=== PATIENT | male | born 1985 | race Two or more races ===

== ENCOUNTER 2020-08-07 10:46 | Emergency (ER) | payer OTHER ==
[~2020-08-07] VITALS: Ht 170.2 cm; Wt 72.6 kg
[~2020-08-07 10:46] MED LIST: METCAR500 PO; Naprosyn500 MG PO; Ultram50 MG PO
[2020-08-07 13:31] LABS: BASOPHILS ABSOLUTE AUTO 0.05 K/mm3 (0.00-0.23); BASOPHILS PERCENT AUTO 1 % (0-2); EOSINOPHILS ABSOLUTE AUTO 0.08 K/mm3 (0.00-0.68); EOSINOPHILS PERCENT AUTO 1 % (0-6); Hematocrit 45.5 % (37.0-53.0); IMMATURE GRAN ABSOLUTE AUTO 0.05 K/mm3 (0.00-0.10); IMMATURE GRAN PERCENT AUTO 1 % (0-1); LYMPHOCYTES ABSOLUTE AUTO 2.53 K/mm3 (0.84-5.20); LYMPHOCYTES PERCENT AUTO 29 % (21-46); MONOCYTES ABSOLUTE AUTO 0.64 K/mm3 (0.16-1.47); MONOCYTES PERCENT AUTO 7 % (4-13); Mean Corpuscular HGB 21.4 pg (26.0-34.0); Mean Corpuscular HGB Conc 30.8 g/dL (31.5-36.5); Mean Corpuscular Volume 70 fL (80-100); Mean Platelet Volume 12.1 fL (9.1-12.4); NEUTROPHILS ABSOLUTE AUTO 5.43 K/mm3 (1.96-9.15); NEUTROPHILS PERCENT AUTO 62 % (41-73); Platelet Count 202 K/mm3 (150-400); RDW Coefficient Variation 16.1 % (11.7-14.2); RDW Standard Deviation 37.4 fL (35.1-46.3); Red Blood Cell Count 6.53 M/mm3 (4.30-5.90); White Blood Cell Count 8.78 K/mm3 (4.00-11.30)
[2020-08-07] MEDS ORDERED: OXYC5 PO (14:09)
[2020-08-07] MEDS ORDERED: CYCL10 PO (14:09)
== END 2020-08-07 14:27 | disposition home or self-care (01) ==
LOC: ER 10:46
PROVIDERS: Physician Assistant
DX: M25.512 Pain in left shoulder (principal); G89.29 Other chronic pain; Z87.828 Personal history of other (healed) physical injury and trauma
CPT/HCPCS: 36415; 85025; 85651; 86140; 96372; 99283; A9270; J1885

== ENCOUNTER 2020-10-08 11:27 | Day surgery (SDC) | payer OTHER ==
[~2020-10-08] VITALS: Ht 170.2 cm; Wt 75.3 kg
[~2020-10-08 11:27] MED LIST changes: +CYCL10 PO; +OXYC5 PO
--- NOTE | 2020-10-08 13:02 | NUR ---
10/08/20 1302 Shabbir Giron CALL LIGHT WITHIN REACH
--- NOTE | 2020-10-08 15:04 | NUR ---
10/08/20 1504 Stacey Jones EPI 1MG INJECTED INTO EACH OF THE FIRST 3 3000ML BAGS OF LR PER MD US
== END 2020-10-08 16:10 | disposition home or self-care (01) ==
LOC: ORSCSDS 11:27
PROVIDERS: Orthopaedic Surgery
PROC: 0LS44ZZ Reposition Left Upper Arm Tendon, Percutaneous Endoscopic Approach (ICD-10-PCS; principal; 2020-10-08 13:15)
PROC: 0LU24KZ Supplement Left Shoulder Tendon with Nonautologous Tissue Substitute, Percutaneous Endoscopic Approach (ICD-10-PCS; principal; 2020-10-08 13:15)
PROC: 0RNK4ZZ Release Left Shoulder Joint, Percutaneous Endoscopic Approach (ICD-10-PCS; principal; 2020-10-08 13:15)
PROC: 0LQ24ZZ Repair Left Shoulder Tendon, Percutaneous Endoscopic Approach (ICD-10-PCS; principal; 2020-10-08 13:15)
DX: M75.112 Incomplete rotator cuff tear or rupture of left shoulder, not specified as traumatic (principal); M75.22 Bicipital tendinitis, left shoulder; M75.42 Impingement syndrome of left shoulder
CPT/HCPCS: C1713; J0171; J0690; J1100; J2250; J2405; J2704; J2795; J3010; J7120

== ENCOUNTER 2022-07-04 05:48 | Emergency (ER) | payer OTHER ==
[~2022-07-04] VITALS: Ht 170.2 cm; Wt 72.6 kg
[2022-07-04 08:29] LABS: BASOPHILS ABSOLUTE AUTO 0.04 K/mm3 (0.00-0.23); BASOPHILS PERCENT AUTO 0 % (0-2); EOSINOPHILS ABSOLUTE AUTO 0.08 K/mm3 (0.00-0.68); EOSINOPHILS PERCENT AUTO 1 % (0-6); Hematocrit 45.4 % (37.0-53.0); Hemoglobin 14.4 g/dL (13.5-17.5); IMMATURE GRAN ABSOLUTE AUTO 0.09 K/mm3 (0.00-0.10); IMMATURE GRAN PERCENT AUTO 1 % (0-1); LYMPHOCYTES PERCENT AUTO 12 % (21-46); MONOCYTES ABSOLUTE AUTO 0.65 K/mm3 (0.16-1.47); MONOCYTES PERCENT AUTO 4 % (4-13); Mean Corpuscular HGB 21.8 pg (26.0-34.0); Mean Corpuscular HGB Conc 31.7 g/dL (31.5-36.5); Mean Corpuscular Volume 69 fL (80-100); Mean Platelet Volume 11.5 fL (9.1-12.4); NEUTROPHILS ABSOLUTE AUTO 13.32 K/mm3 (1.96-9.15); NEUTROPHILS PERCENT AUTO 82 % (41-73); Platelet Count 228 K/mm3 (150-400); RDW Coefficient Variation 16.6 % (11.7-14.2); RDW Standard Deviation 37.5 fL (35.1-46.3); Red Blood Cell Count 6.61 M/mm3 (4.30-5.90); White Blood Cell Count 16.18 K/mm3 (4.00-11.30)
[2022-07-04 08:51] LABS: Albumin, Blood 3.8 g/dL (3.4-5.0); Bilirubin, Total 0.4 mg/dL (0.1-1.0); Bun/Creatinine Ratio 14.9 (12.0-20.0); Calcium, Blood 9.2 mg/dL (8.5-10.1); Creatinine, Blood 0.81 mg/dL (0.60-1.20); Globulin, Blood 3.9 g/dL (2.2-4.0); Potassium, Blood 4.5 mmol/L (3.5-5.5); Total Protein, Blood 7.7 g/dL (6.4-8.2)
== END 2022-07-04 11:15 | disposition home or self-care (01) ==
LOC: ER 05:48
PROVIDERS: Physician Assistant
DX: R55 Syncope and collapse (principal); S02.2XXB Fracture of nasal bones, initial encounter for open fracture; W18.39XA Other fall on same level, initial encounter
CPT/HCPCS: 36415; 70450; 71045; 80053; 83735; 84484; 85025; 93005; 93010

== ENCOUNTER 2024-04-07 08:36 | Emergency (ER) | payer OTHER ==
[~2024-04-07] VITALS: Ht 170.2 cm; Wt 72.6 kg
[2024-04-07 08:43] VITALS: BP 148/88
== END 2024-04-07 09:58 | disposition home or self-care (01) ==
LOC: ER 08:36
DX: S86.912A Strain of unspecified muscle(s) and tendon(s) at lower leg level, left leg, initial encounter (principal); X58.XXXA Exposure to other specified factors, initial encounter
CPT/HCPCS: 73562-LT; 99283-25

== ENCOUNTER → 2024-04-11 | Outpatient (CLI) | payer OTHER ==
[2024-04-11 16:29] LABS: BODY FLUID RBC 0.002 M/mm3 (0-0)
[2024-04-11 16:35] LABS: Body Fluid Crystals NEG (NEGATIVE)
[2024-04-11 16:37] LABS: RBC Count, Synovial Fluid 2000 /mm3 (0-0)
[2024-04-11 16:38] LABS: WBC Count, Synovial Fluid 17680 /mm3 (0-180)
[2024-04-11 17:54] LABS: Lymphs, Synovial Fluid 13 % (0-15); Monocytes/Macrophages, Synovia 18 % (0-65); Neutrophils, Synovial Fluid 69 % (0-24)
[2024-04-11 17:55] LABS: Appearance, Synovial Fluid Cloudy (Clear); Color, Synovial Fluid Yellow (None-P Yel)
== END | disposition home or self-care (01) ==
LOC: LAB 14:38 → LAB SHORT 14:38
PROVIDERS: Nurse Practitioner
DX: M25.462 Effusion, left knee (principal)
CPT/HCPCS: 87070; 87205; 89051; 89060

== ENCOUNTER 2024-06-16 06:09 | Day surgery (SDC) | payer OTHER ==
[~2024-06-16] VITALS: Ht 170.2 cm; Wt 75.9 kg
[2024-06-16] MEDS ORDERED: CeFAZolin Sodium 2,000 MG VIAL ONE (06:25)
[2024-06-16] MEDS ORDERED: NS 50 ML IV ONE (06:25)
[2024-06-16] MEDS ORDERED: Lactated Ringer's 1,000 ML IV ONE ×2 (06:25→06:53)
[2024-06-16] MEDS ORDERED: Acetaminophen 500 MG Tab ONE (06:44)
[2024-06-16] MEDS ORDERED: propofoL 100 ML IV ONE (06:50)
[2024-06-16] MEDS ORDERED: Lidocaine 2%-Epineph 1:100000 20 ML MDV ONE (06:53)
[2024-06-16] MEDS ORDERED: EPINEPhrine HCl 1 MG / ML 30ML Vial ONE (06:58)
[2024-06-16] MEDS ORDERED: Dexamethasone Sod Phos 10 MG/ML 1ML VIAL ONE (07:00)
[2024-06-16] MEDS ORDERED: Ondansetron HCl 2 MG / ML 2ML Vial ONE (07:00)
[2024-06-16] MEDS ORDERED: Ketorolac Tromethamine 30mg Vial ONE (07:00)
[2024-06-16] MEDS ORDERED: FentaNYL Citrate 50 MCG/ML 2 ML Injection ONE (07:10)
[2024-06-16 08:46] VITALS: BP 113/78
== END 2024-06-16 09:27 | disposition home or self-care (01) ==
LOC: ORSCSDS 06:09
PROVIDERS: Orthopaedic Surgery
PROC: 0SBD4ZZ Excision of Left Knee Joint, Percutaneous Endoscopic Approach (ICD-10-PCS; principal; 2024-06-16 07:30)
DX: S83.242A Other tear of medial meniscus, current injury, left knee, initial encounter (principal)
CPT/HCPCS: A9270; J0171; J0690; J1100; J1885; J2405; J2704; J3010; J7120